=== PATIENT | male | born 1950 | race Caucasian/White ===

== ENCOUNTER → 2021-05-10 | Outpatient (CLI) | payer OTHER, MEDICARE | LOC: RAD 10:39 | PROVIDERS: ATTEND Podiatrist | DX: E11.621 Type 2 diabetes mellitus with foot ulcer (principal); E11.622 Type 2 diabetes mellitus with other skin ulcer; L97.421 Non-pressure chronic ulcer of left heel and midfoot limited to breakdown of skin; L98.499 Non-pressure chronic ulcer of skin of other sites with unspecified severity ==

== ENCOUNTER 2021-05-19 13:49 | Outpatient (RCR) | payer MEDICARE, OTHER | END 2021-05-20 | LOC: WCC 13:49 | PROVIDERS: ATTEND Internal Medicine Infectious Disease | DX: E11.621 Type 2 diabetes mellitus with foot ulcer (principal); L97.421 Non-pressure chronic ulcer of left heel and midfoot limited to breakdown of skin; L03.116 Cellulitis of left lower limb; R60.0 Localized edema; I10 Essential (primary) hypertension; E78.5 Hyperlipidemia, unspecified | CPT/HCPCS: 36415; 84134; 85651; 86140; 87071; 87075; 87186; 87205 ==

== ENCOUNTER 2021-06-16 15:01 | Outpatient (RCR) | payer MEDICARE, OTHER ==
[~2021-06-16 15:01] MED LIST: LIDOCAINE VISC 2% SOLN 15 ML UDC ONE; MUPIROCIN 2% OINT 22 GM TUBE ONE
== END 2021-06-20 ==
LOC: WCC 15:01
PROVIDERS: ATTEND Internal Medicine Infectious Disease
DX: E11.621 Type 2 diabetes mellitus with foot ulcer (principal); L97.421 Non-pressure chronic ulcer of left heel and midfoot limited to breakdown of skin; L03.116 Cellulitis of left lower limb; R60.0 Localized edema; I10 Essential (primary) hypertension; B96.5 Pseudomonas (aeruginosa) (mallei) (pseudomallei) as the cause of diseases classified elsewhere; E78.5 Hyperlipidemia, unspecified; E55.9 Vitamin D deficiency, unspecified
CPT/HCPCS: 10061; 87071; 87075; 87186; 87205

== ENCOUNTER 2021-07-14 13:55 | Outpatient (RCR) | payer MEDICARE, OTHER ==
[~2021-07-14 13:55] MED LIST changes: +GENTAMICIN SULFATE 15 GM CR TP ONE; +LIDOCAINE/PRILOCAINE 2.5-2.5% KIT ONE; -MUPIROCIN 2% OINT 22 GM TUBE ONE
== END 2021-07-20 ==
LOC: WCC 13:55
PROVIDERS: ATTEND Podiatrist
DX: E11.621 Type 2 diabetes mellitus with foot ulcer (principal); L97.421 Non-pressure chronic ulcer of left heel and midfoot limited to breakdown of skin; R60.0 Localized edema; I10 Essential (primary) hypertension; E78.5 Hyperlipidemia, unspecified; E55.9 Vitamin D deficiency, unspecified
CPT/HCPCS: 11042 ×2; 15275 ×2; 97597 ×2; 99213 ×5; Q4160 ×2

== ENCOUNTER 2021-08-18 13:56 | Outpatient (RCR) | payer MEDICARE, OTHER ==
[~2021-08-18 13:56] MED LIST changes: -LIDOCAINE/PRILOCAINE 2.5-2.5% KIT ONE
== END 2021-08-20 ==
LOC: WCC 13:56
PROVIDERS: ATTEND Podiatrist
DX: E11.621 Type 2 diabetes mellitus with foot ulcer (principal); L97.421 Non-pressure chronic ulcer of left heel and midfoot limited to breakdown of skin; I10 Essential (primary) hypertension; E78.5 Hyperlipidemia, unspecified; E55.9 Vitamin D deficiency, unspecified
CPT/HCPCS: 11042; 15275 ×4; Q4160 ×4

== ENCOUNTER 2021-09-15 14:29 | Outpatient (RCR) | payer MEDICARE, OTHER | END 2021-09-20 | LOC: WCC 14:29 | PROVIDERS: ATTEND Podiatrist | DX: E11.621 Type 2 diabetes mellitus with foot ulcer (principal); L97.421 Non-pressure chronic ulcer of left heel and midfoot limited to breakdown of skin; I10 Essential (primary) hypertension; E78.5 Hyperlipidemia, unspecified; E55.9 Vitamin D deficiency, unspecified | CPT/HCPCS: 11042 ×2; 15275 ×2; Q4160 ×2 ==

== ENCOUNTER 2021-10-13 14:17 | Outpatient (RCR) | payer MEDICARE, OTHER ==
[~2021-10-13 14:17] MED LIST changes: +AMMONIUM LACTATE 12% LOTION 225GM BTL ONE; +CADEXOMER IODINE 30 GM TUBE ONE; -GENTAMICIN SULFATE 15 GM CR TP ONE; +SODIUM CHLORIDE 0.9% INJ 250 ML BAG ONE
== END 2021-10-18 ==
LOC: WCC 14:17
PROVIDERS: ATTEND Podiatrist
DX: E11.621 Type 2 diabetes mellitus with foot ulcer (principal); L97.428 Non-pressure chronic ulcer of left heel and midfoot with other specified severity; L97.421 Non-pressure chronic ulcer of left heel and midfoot limited to breakdown of skin; I10 Essential (primary) hypertension; E78.5 Hyperlipidemia, unspecified; E55.9 Vitamin D deficiency, unspecified
CPT/HCPCS: 10060; 11042 ×3; 87071; 87075; 87205; J7050

== ENCOUNTER → 2022-02-04 | Day surgery (SDC) | payer MEDICARE, OTHER ==
[~2022-02-04] MED LIST changes: -AMMONIUM LACTATE 12% LOTION 225GM BTL ONE; +BUPIVACAINE HC 0.75% PF 10ML VIAL INJ ONE; -CADEXOMER IODINE 30 GM TUBE ONE; +DEXAMETHASONE SOD PHOS INJ 4 MG/ML SDV ONE; +EPHEDRINE SULFATE INJ 50 MG/ML VIAL ONE; +FENTANYL CITRATE/PF 100MCG/2 ML INJ ONE; +FISH OIL 1,0001 EAC2 PO; +GARLIC200 MG PO; +GLYCOPYRROLATE INJ 0.2 MG/ML VIAL ONE; +LIDOCAINE HCL 1% LOCAL INJ 20 ML VIAL ONE; +LIDOCAINE HCL 2% LOCAL INJ 5 ML SDV VIAL INJ ONE; -LIDOCAINE VISC 2% SOLN 15 ML UDC ONE; +METFORMIN HCL500 MG PO; +MIDAZOLAM HCL 2 MG/2 ML VIAL ONE; +ONDANSETRON HCL INJ 2MG/ML 2ML 2 MG/ML VIAL ONE; +OSTEO BI-FLEX1 EAC4 PO; +POTASSIUM99 M1 PO; +POVIDONE IODINE 0.05% 0.05 % ML PO ONE; +PROPOFOL IV EMULSION 10 MG/ML 20 ML VIAL ONE; +SEVOFLURANE INHAL SOLN 250 ML PEN BTL ONE; +SIMVASTATIN20 MG PO; -SODIUM CHLORIDE 0.9% INJ 250 ML BAG ONE; +TRIAMCINOLONE ACET 40 MG/ML VIAL ONE; +VASOTEC10 MG PO; +VITAMIN C1000 MG PO; +VITAMIN D3125 MCG PO; +ZIAC 5-6.25 MG1 EACH PO; +ZINC PO
[2022-02-04 12:18] LABS: BASOPHILS # (AUTO) 0.1 (0.0-0.1); BASOPHILS % 0.7 % (0.0-1.0); EOSINOPHILS # (AUTO) 0.2 (0.0-0.4); EOSINOPHILS % 2.1 % (0.0-6.0); HEMATOCRIT 41.6 % (38.2-49.6); HEMOGLOBIN 14.1 g/dL (14.0-18.0); LYMPHOCYTES # (AUTO) 2.2 (1.0-3.2); LYMPHOCYTES % 28.3 % (18.0-39.1); MEAN CORPUSCULAR HEMOGLOBIN 31.9 pg (28-32); MEAN CORPUSCULAR HGB CONC 33.9 g/dL (31-35); MEAN CORPUSCULAR VOLUME 94.1 fL (81-99); MONOCYTES # (AUTO) 0.8 (0.2-0.8); MONOCYTES % 10.2 % (4.4-11.3); NEUTROPHILS # (AUTO) 4.5 (2.1-6.9); NEUTROPHILS % 58.6 % (38.7-80.0); PLATELET COUNT 285 x10e3/uL (140-360); RED BLOOD COUNT 4.42 x10e6/uL (4.3-5.7); RED CELL DISTRIBUTION WIDTH 12.5 % (11.7-14.4)
[2022-02-04 12:38] LABS: CREATININE, SERUM 0.95 mg/dL (0.72-1.25)
[2022-02-04 16:52] LABS: ALBUMIN 4.2 g/dL (3.5-5.0); ALBUMIN/GLOBULIN RATIO 1.4 (0.8-2.0)
[2022-02-04 16:55] VITALS: BP 140/79
== END | disposition home or self-care (01) ==
LOC: OR 10:35
PROVIDERS: ATTEND Podiatrist
DX: M20.12 Hallux valgus (acquired), left foot (principal); M21.612 Bunion of left foot; E11.621 Type 2 diabetes mellitus with foot ulcer; L97.522 Non-pressure chronic ulcer of other part of left foot with fat layer exposed; M72.2 Plantar fascial fibromatosis; M67.874 Other specified disorders of tendon, left ankle and foot; M77.8 Other enthesopathies, not elsewhere classified; E11.59 Type 2 diabetes mellitus with other circulatory complications; L84 Corns and callosities; M19.90 Unspecified osteoarthritis, unspecified site; G47.33 Obstructive sleep apnea (adult) (pediatric); I10 Essential (primary) hypertension; E78.5 Hyperlipidemia, unspecified; R00.1 Bradycardia, unspecified; K28.9 Gastrojejunal ulcer, unspecified as acute or chronic, without hemorrhage or perforation; N20.0 Calculus of kidney; Z88.0 Allergy status to penicillin; Z88.2 Allergy status to sulfonamides; Z79.84 Long term (current) use of oral hypoglycemic drugs; Z79.899 Other long term (current) drug therapy; Z85.828 Personal history of other malignant neoplasm of skin
CPT/HCPCS: 0223U; 28240; 28292; 36415; 71046; 80053; 82948; 85025; 88304; 88311; 93005; C1713 ×2; J1100; J2001 ×2; J2250; J2405; J2704; J3010; J3301

== ENCOUNTER 2022-02-16 13:55 | Outpatient (RCR) | payer MEDICARE, OTHER ==
[~2022-02-16 13:55] MED LIST changes: -BUPIVACAINE HC 0.75% PF 10ML VIAL INJ ONE; -DEXAMETHASONE SOD PHOS INJ 4 MG/ML SDV ONE; -EPHEDRINE SULFATE INJ 50 MG/ML VIAL ONE; -FENTANYL CITRATE/PF 100MCG/2 ML INJ ONE; -GLYCOPYRROLATE INJ 0.2 MG/ML VIAL ONE; -LIDOCAINE HCL 1% LOCAL INJ 20 ML VIAL ONE; -LIDOCAINE HCL 2% LOCAL INJ 5 ML SDV VIAL INJ ONE; -MIDAZOLAM HCL 2 MG/2 ML VIAL ONE; -ONDANSETRON HCL INJ 2MG/ML 2ML 2 MG/ML VIAL ONE; -POVIDONE IODINE 0.05% 0.05 % ML PO ONE; -PROPOFOL IV EMULSION 10 MG/ML 20 ML VIAL ONE; -SEVOFLURANE INHAL SOLN 250 ML PEN BTL ONE; -TRIAMCINOLONE ACET 40 MG/ML VIAL ONE
== END 2022-02-17 ==
LOC: WCC 13:55
PROVIDERS: ATTEND Podiatrist
DX: T81.89XD Other complications of procedures, not elsewhere classified, subsequent encounter (principal); E11.622 Type 2 diabetes mellitus with other skin ulcer; E11.621 Type 2 diabetes mellitus with foot ulcer; L97.928 Non-pressure chronic ulcer of unspecified part of left lower leg with other specified severity; L97.421 Non-pressure chronic ulcer of left heel and midfoot limited to breakdown of skin; I10 Essential (primary) hypertension; E78.5 Hyperlipidemia, unspecified; E55.9 Vitamin D deficiency, unspecified

== ENCOUNTER 2022-03-09 15:30 | Outpatient (RCR) | payer MEDICARE, OTHER ==
[~2022-03-09 15:30] MED LIST changes: +MINERAL OIL/PETROLAT/GLYCERI 6OZ BTL ONE
== END 2022-03-20 ==
LOC: WCC 15:30
PROVIDERS: ATTEND Podiatrist
DX: T81.89XD Other complications of procedures, not elsewhere classified, subsequent encounter (principal); E11.621 Type 2 diabetes mellitus with foot ulcer; E11.622 Type 2 diabetes mellitus with other skin ulcer; L97.421 Non-pressure chronic ulcer of left heel and midfoot limited to breakdown of skin; L97.928 Non-pressure chronic ulcer of unspecified part of left lower leg with other specified severity; I10 Essential (primary) hypertension; E78.5 Hyperlipidemia, unspecified; E55.9 Vitamin D deficiency, unspecified
CPT/HCPCS: 96372

== ENCOUNTER 2022-03-23 14:53 | Outpatient (RCR) | payer MEDICARE, OTHER ==
[~2022-03-23 14:53] MED LIST changes: -MINERAL OIL/PETROLAT/GLYCERI 6OZ BTL ONE
== END 2022-04-20 ==
LOC: WCC 14:53
PROVIDERS: ATTEND Podiatrist
DX: E11.621 Type 2 diabetes mellitus with foot ulcer (principal); E11.622 Type 2 diabetes mellitus with other skin ulcer; L97.421 Non-pressure chronic ulcer of left heel and midfoot limited to breakdown of skin; L97.928 Non-pressure chronic ulcer of unspecified part of left lower leg with other specified severity; I10 Essential (primary) hypertension; E78.5 Hyperlipidemia, unspecified; E55.9 Vitamin D deficiency, unspecified